=== PATIENT | female | born 1960 ===

== ENCOUNTER 2017-12-28 13:00 | Emergency (ER) | payer MEDICAID ==
[2017-12-28 13:00] VITALS: BMI 27.7
--- NOTE | 2017-12-28 15:06 | ED PDOC ---
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 Patient states she has been evaluated by Dr. Meng Wright (orderlies teacher) and was referred for a foot MRI due to tarsal tunnel syndrome, but has not been able to get pre- authorization from her insurance. Patient states the pain is unbearable and she is "unable to walk" due to it. Otherwise denies any injury, trauma, fever, chills, numbness or tingling. No other medical complaints. Past Medical History Reviewed: Historical Data, Nursing Documentation, Vital Signs Vital Signs: Last Vital Signs Temp 98.0 F 12/28/17 13:40 Pulse 72 12/28/17 13:40 Resp 19 12/28/17 13:40 BP 127/73 12/28/17 13:40 Pulse Ox 100 12/28/17 13:40 - Medical History PMH: Anxiety, Arthritis, Bipolar Disorder Denies: Chronic Kidney Disease - Surgical History Surgical History: Cholecystectomy - Family History Family History: States: Unknown Family Hx - Home Medications Home Medications: Ambulatory Orders Medication Instructions Recorded Clonazepam 1 tab PO BID 01/31/15 Acetaminophen [Tylenol] 325 mg PO Q6 PRN 03/31/15 Clonazepam 2 mg PO BID #30 tablet 06/27/15 oxyCODONE/Acetaminophen [Percocet 1 tab PO QID PRN #20 tab 06/27/15 5/325 mg Tab] Naproxen [Naprosyn] 1 tab PO BID PRN #25 tab 09/24/15 - Allergies Allergies/Adverse Reactions: Allergies Allergy/AdvReac Type Severity Reaction Status Date / Time apple Allergy Verified 06/27/15 10:04 cranberry Allergy Verified 06/27/15 10:05 kiwi Allergy Verified 06/27/15 10:05 pear Allergy Verified 06/27/15 10:05 Review of Systems ROS Statement: Except As Marked, All Systems Reviewed And Found Negative Constitutional: Negative for: Fever, Chills Musculoskeletal: Positive for: Foot Pain (left) Neurological: Negative for: Weakness, Numbness Physical Exam - Reviewed Nursing Documentation Reviewed: Yes Vital Signs Reviewed: Yes - Physical Exam Appears: Positive for: Non-toxic, Uncomfortable Head Exam: Positive for: ATRAUMATIC, NORMAL INSPECTION, NORMOCEPHALIC Skin: Positive for: Normal Color Eye Exam: Positive for: Normal appearance Neck: Positive for: Supple Cardiovascular/Chest: Positive for: Regular Rate, Rhythm Respiratory: Positive for: Normal Breath Sounds Pulses-Dorsalis Pedis (L): 2+ Pulses-Dorsalis Pedis (R): 2+ Back: Positive for: Normal Inspection. Negative for: Vertebral Tenderness, Muscle Spasm Extremity: Positive for: Normal ROM (FROM left ankle and foot), Capillary Refill (< 2 seconds). Negative for: Pedal Edema, Calf Tenderness, Deformity, Swelling Neurologic/Psych: Positive for: Alert, Oriented. Negative for: Motor/Sensory Deficits - ECG O2 Sat by Pulse Oximetry: 100 (RA) Pulse Ox Interpretation: Normal Medical Decision Making Medical Decision Making: Impression: Left foot pain, tarsal tunnel syndrome Plan: -- Motrin 600mg PO -- MRI Left foot w/o contrast Scribe Attestation: Documented by Linda Naylor, acting as a scribe for Derian Taylor MD. Provider Scribe Attestation: All medical record entries made by the Scribe were at my direction and personally dictated by me. I have reviewed the chart and agree that the record accurately reflects my personal performance of the history, physical exam, medical decision making, and the department course for this patient. I have also personally directed, reviewed, and agree with the discharge instructions and disposition. Time: 0 -- Patient endorsed to Dr. Mcdonald, pending MRI result. Scribe Attestation: Documented by Grant Henry, acting as a scribe for Derian Taylor MD. Provider Scribe Attestation: All medical record entries made by the Scribe were at my direction and personally dictated by me. I have reviewed the chart and agree that the record accurately reflects my personal performance of the medical decision making for this patient. I have also personally directed, reviewed, and agree with the discharge instructions and disposition. Disposition - Clinical Impression Clinical Impression: Plantar fasciitis - Patient ED Disposition Is Patient to be Admitted: Transfer of Care - Disposition Referrals: Podiatry Clinic [Outside] Kaley Dasilva MD [Family Provider] - Disposition: Transfer of Care Disposition Time: 19:00 Condition: GOOD Additional Instructions: Please followup with podiatry as soon as possible and bring your MRI report. Instructions: Heel Pain (Caused by Plantar Fasciitis), Plantar Fasciitis Exercises Forms: [facility] (Albanian) Patient Signed Over To: Mendel Mcdonald Handoff Comments: pending mri results and dispo
[2017-12-28 20:17] VITALS: BP 114/73; PULSE 97; RESP 18; TEMP 98.5
--- NOTE | 2017-12-28 21:16 | ED PDOC ---
"- ECG O2 Sat by Pulse Oximetry: 96 (RA) Pulse Ox Interpretation: Normal Medical Decision Making Medical Decision Making: Time: 1899 -- Patient endorsed to me by Dr. Taylor, pending MRI result. Time: 2114 EXAM: MR Left Lower Extremity Without Intravenous Contrast, Ankle EXAM DATE/TIME: 12/28/2017 2:31 PM CLINICAL HISTORY: 57 years old, female; Pain; Ankle; Left; Patient HX: Caitie comes to ed for evaluation of left foot pain for 3 weeks, pat state the pain is unbearable and she is unable to walk due to it. ; Additional info: 3 wk foot pain, tarsal tunnel syndrome TECHNIQUE: Multiplanar magnetic resonance images of the left ankle without intravenous contrast. COMPARISON: No relevant prior studies available. FINDINGS: LIGAMENTS: Anterior talofibular: Unremarkable. Posterior talofibular: Unremarkable. Anterior tibiofibular: Unremarkable. Posterior tibiofibular: Unremarkable. Calcaneofibular: Unremarkable. Deltoid: Unremarkable. Spring: Unremarkable. Lisfranc: Unremarkable. TENDONS: Achilles: Unremarkable. Flexor: Unremarkable. Extensor: Unremarkable. Peroneal: Thickening and mild inflammatory change involving the peroneus quartus muscle and tendon. Tibialis anterior: Unremarkable. Tibialis posterior: Unremarkable. Muscles: See above. Fluid: Unremarkable. No joint effusion. Sinus tarsi: Mild inflammatory change in the sinus tarsi. SHERLY CRAIG | Preliminary Radiology Report AIRCRAFT STRUCTURE MECHANIC (QA) DISCREPANCY? If there is a discrepancy between the preliminary and final interpretation, please notify ad via [email or web address]. If you do not have access to our QA portal, call our QA team at [phone] CONFIDENTIALITY STATEMENT This report is intended only for the use of the referring physician, and only in accordance with law, If you received this in error, call [phone] Page 2 of 2 Tarsal tunnel: Unremarkable. Plantar fascia: Thickening of plantar fascial insertion with mild calcaneal inflammatory change suggestive of mild plantar fascitis. Cartilage: Unremarkable. Bones/joints: Unremarkable. IMPRESSION: 1. Thickening of plantar fascial insertion with mild calcaneal inflammatory change suggestive of mild plantar fascitis. 2. Thickening and mild inflammatory change involving the peroneus quartus muscle and tendon. 3. Mild inflammatory change in the sinus tarsi. Gave patient results of MRI and advised followup with aba therapist, patient states she is going to go tomorrow. Well appearing upon discharge. Scribe Attestation: Documented by Grant Henry acting as a scribe for Dr. Mendel Mcdonald MD. Provider Scribe Attestation: All medical record entries made by the Scribe were at my direction and personally dictated by me. I have reviewed the chart and agree that the record accurately reflects my personal performance of the medical decision making and the department course for this patient. I have also personally directed, reviewed, and agree with the discharge instructions and disposition. Disposition - Clinical Impression Clinical Impression: Plantar fasciitis - POA Present On Arrival: None - Disposition Referrals: Podiatry Clinic [Outside] Kaley Dasilva MD [Family Provider] - Disposition: Routine/Home Disposition Time: 21:15 Condition: GOOD Additional Instructions: Please followup with podiatry as soon as possible and bring your MRI report. Instructions: Heel Pain (Caused by Plantar Fasciitis), Plantar Fasciitis Exercises Forms: [facility] (Bulgarian)"
[2017-12-29 13:06] VITALS: O2SAT 100
--- NOTE | 2017-12-29 15:26 | MRI ---
MRI left ankle History: Ankle pain. Comparison: None available. Technique: Multi-echo and multiplanar sequences were performed through the left ankle without the use of intravenous contrast. Findings: Anterior extensor tendons are preserved. Mild tenosynovitis of the posterior tibial tendon sheath. Remainder of the medial flexor tendons are preserved. Mild tenosynovitis of the peroneal tendon sheath. Thickening and mild inflammatory change involving the peroneus quartus muscle and tendon. Anterior and posterior tibiofibular ligaments are preserved. Anterior and posterior talofibular ligaments are preserved. Achilles tendon is preserved. Thickening of the plantar fascia measuring up to 9 millimeters with associated adjacent bony spurring of the calcaneus as well as reactive edema within the inferior calcaneus at the insertion of the plantar fascia suggestive for a moderate plantar fascitis. Mild inflammatory change within the sinus tarsi. Clinical correlation. Small ankle joint effusion. Degenerative changes noted at the dorsal aspect of the talonavicular joint space. Deltoid ligament is preserved. Impression: 1. Thickening of the plantar fascia measuring up to 9 millimeters with associated adjacent bony spurring of the calcaneus as well as reactive edema within the inferior calcaneus at the insertion of the plantar fascia suggestive for a moderate plantar fascitis. 2. Mild inflammatory change within the sinus tarsi. Clinical correlation. 3. Small ankle joint effusion. 4. Mild tenosynovitis of the posterior tibial tendon sheath. 5. Mild tenosynovitis of the peroneal tendon sheath. Thickening and mild inflammatory change involving the peroneus quartus muscle and tendon. These findings were preliminarily reported at 7:52 p.[address]. on 12/28/[address] Enio Dubois from [facility].
== END 2017-12-28 20:15 | disposition home or self-care (01) ==
LOC: H.ER 13:00
DX: M72.2 Plantar fascial fibromatosis (principal)